=== PATIENT | female | born 1995 | race Caucasian/White ===

== ENCOUNTER 2018-02-16 05:26 | Emergency (ER) | payer OTHER ==
[~2018-02-16] VITALS: Ht 175.3 cm; Wt 61.2 kg
[2018-02-16] MEDS ORDERED: TESSALON PERLE100 MG (05:35)
[2018-02-16] MEDS ORDERED: HYDROCODON-ACE1 EAC8 PO (06:46)
[2018-02-16] MEDS ORDERED: FLONASE 0.05%50 MCG NASAL (06:46)
[2018-02-16] MEDS ORDERED: TAMIFLU75 MG PO (06:46)
[2018-02-16 06:55] VITALS: BP 130/80
--- NOTE | 2018-02-16 10:16 | EKG ---
[place] [address] ELECTROCARDIOGRAM REPORT Name: LEONOR MENDES Room: [facility]#: [id number] Admission: 02/16/18 Attend Phys: Discharge: 02/16/18 Date of : [birth year] Report #: [id number] THIS REPORT FOR: //name// [facility] ED Test Date: 2018-02-16 Test Time: 06:35:45 Pat Name: LEONOR MENDES Department: Room: Gender: F Caption Writer: JUDY : 1995 Requested By: Lucy Dixon Order Number: [id number] MD: Chris Caldwell Measurements Intervals [place] Rate: 86 P: 72 NC: 123 QRS: 86 QRSD: 87 T: 21 QT: 355 QTc: 425 Interpretive Statements Sinus rhythm Probable left atrial enlargement RSR' in V1 or V2, right VCD or RVH Nonspecific T abnormalities, lateral leads No previous ECG available for comparison Electronically Signed On 02-16-2018 10:16:28 CDT by Chris Caldwell [email or web address] <ELECTRONICALLY SIGNED> By: Chris Caldwell MD, [facility] 02/16/18 [id number] Chris Caldwell MD, [facility] /EPI
== END 2018-02-16 06:55 | disposition home or self-care (01) ==
LOC: M.ERS 05:26
DX: R07.89 Other chest pain (principal); R05 Cough; Z88.1 Allergy status to other antibiotic agents; Z88.0 Allergy status to penicillin